=== PATIENT | male | born 1950 | race Caucasian/White ===

== ENCOUNTER → 2016-04-27 | Outpatient (CLI) | payer MEDICARE, OTHER ==
--- NOTE | 2016-04-28 13:54 | MR ---
EXAMINATION TYPE: MR lumbar spine wo con DATE OF EXAM: 04/27/2016 11:41 AM COMPARISON: NONE HISTORY: Low back pain, radiculopathy lumbar CONTRAST: 0 mL intravenous Omniscan. TECHNIQUE: Multiplanar, multisequence images of the lumbar spine were acquired. FINDINGS: L5-S1: Very subtle minimal disc bulge is present with anterior thecal sac contact. No spinal canal st enosis is present. Neural foramen are patent. Mild facet hypertrophy is present. L4-L5: Minimal disc bulging is anterior thecal sac flattening No spinal canal stenosis. No foramina l stenosis. Facets are normal. L3-L4: Disc bulging is anterior thecal sac flattening. No AP spinal canal stenosis is present. Facet hypertrophy is present with posterior lateral thecal sac compression. L2-L3: No significant disc bulge or disc herniation. No spinal canal stenosis. No foraminal stenosi s. Neural foramen are patent.. L1-L2: No significant disc bulge or disc herniation. No spinal canal stenosis. No foraminal stenosi s. Neural foramen are patent.. T12-L1: No significant disc bulge or disc herniation. No spinal canal stenosis. No foraminal stenos is. Neural foramen are patent.. IMPRESSION: 1. Mild disc bulging L3-4, L4-5, L5-S1
== END | disposition home or self-care (01) ==
LOC: RADMRIMAIN 11:04
PROVIDERS: ATTEND Internal Medicine
DX: M51.17 Intervertebral disc disorders with radiculopathy, lumbosacral region (principal)
CPT/HCPCS: 72148

== ENCOUNTER 2020-05-31 10:53 | Emergency (ER) | payer MEDICARE, OTHER ==
[2020-05-31 11:09] VITALS: BP 134/79; PULSE 92; RESP 18; TEMP 98.1
--- NOTE | 2020-05-31 12:02 | ED ---
General Adult HPI - General Chief complaint: ENT Stated complaint: Voice issues Time Seen by Provider: 05/31/20 11:21 Source: patient Mode of arrival: ambulatory Limitations: no limitations - History of Present Illness Initial comments: 70-year-old male patient presents to the emergency department today for evaluation of a hoarse voice. Patient states her last couple of weeks he has been waking up with a hoarse voice. States her last approximately 30 minutes then resolves. Patient denies any sore throat, difficulty swallowing, or fullness in the neck. States that he does have a chronic cough with sputum production. He is chronic smoker and does drink alcohol frequently. Has not seen a primary care physician for the last 4 years. Does have a history of hypothyroid and supposed to be taking Synthroid also hasn't been taking this for 4 years. Denies any swelling to the neck. Denies any unexplained weight loss Denies fever or chills. Denies any sick contacts. Patient denies any recent rash, shortness of breath, chest pain, abdominal pain, nausea, vomiting, diarrhea, constipation, back pain, numbness, tingling, dizziness, weakness, h ematuria, dysuria, urinary urgency, urinary frequency, headache, visual changes, or any other complaints. - Related Data Home Medications Medication Instructions Recorded Confirmed HYDROcodone/APAP 7.5-325MG [[place] 1 each PO Q6HR PRN 10/29/13 10/29/13 7.5] Ibuprofen [Motrin] 800 mg PO Q8HR PRN 10/29/13 10/29/13 Levothyroxine Sodium [Synthroid] 25 mcg PO DAILY 10/29/13 10/29/13 Previous Rx's Medication Instructions Recorded Famotidine [Pepcid] 20 mg PO HS #30 tablet 05/31/20 Loratadine [Claritin] 10 mg PO DAILY #30 tab 05/31/20 Allergies Allergy/AdvReac Type Severity Reaction Status Date / Time No Known Allergies Allergy Verified 05/31/20 11:09 Review of Systems ROS Statement: Those systems with pertinent positive or pertinent negative responses have been documented in the HPI. ROS Other: All systems not noted in ROS Statement are negative. Past Medical History Past Medical History: COPD, Thyroid Disorder Additional Past Medical History / Comment(s): chronic back pain, arthritis, History of Any Multi-Drug Resistant Organisms: None Reported Past Surgical History: Orthopedic Surgery Past Psychological History: No Psychological Hx Reported Smoking Status: Current every day smoker Past Alcohol Use History: Abuse, Daily, Heavy Past Drug Use History: None Reported General Exam Limitations: no limitations General appearance: alert, in no apparent distress, other (Physical well- developed, well-nourished adult male patient in no acute distress. Vital signs upon presentation temperature 98.1F, pulse 92, respirations 18, blood pressure 134/79, pulse ox 95% on room air.) ENT exam: Present: normal exam, normal oropharynx, mucous membranes moist Neck exam: Present: normal inspection. Absent: tenderness, meningismus, lymphadenopathy, thyromegaly Respiratory exam: Present: normal lung sounds bilaterally. Absent: respiratory distress, wheezes, rales, rhonchi, stridor Cardiovascular Exam: Present: regular rate, normal rhythm, normal heart sounds. Absent: systolic murmur, diastolic murmur, rubs, gallop, clicks GI/Abdominal exam: Present: soft, normal bowel sounds. Absent: distended, tenderness, guarding, rebound, rigid Neurological exam: Present: alert, oriented X3, CN II-XII intact Psychiatric exam: Present: normal affect, normal mood Skin exam: Present: warm, dry, intact, normal color. Absent: rash Course Vital Signs 05/31/20 11:07 Temperature 98.1 F Pulse Rate 92 Respiratory 18 Rate Blood Pressure 134/79 O2 Sat by Pulse 95 Oximetry Medical Decision Making - Medical Decision Making 70-year-old male patient presents to the emergency department today for evaluation of worsening voice for the last 2 weeks. Symptoms are upon wakening and last approximately 30 minutes. Physical examination is unremarkable. There is no thyromegaly noted on exam. Oropharynx appears normal. Patient does chronically drink and smoke cigarettes. We did discuss possibility of ALLERGIES or acid reflux as a cause for his symptoms and we will start Claritin and Pepcid. He is also informed of the possibility regarding laryngeal or other pharyngeal tumors and cancer. He is instructed to follow-up with the ENT specialist for further evaluation as soon as possible. Return parameters were discussed in detail. He verbalizes understanding and agrees with this plan. Case discussed with my attending Dr. Cervantes. Disposition Clinical Impression: Hoarseness of voice Disposition: HOME SELF-CARE Condition: Good Instructions (If sedation given, give patient instructions): Gastroesophageal Reflux Disease (ED), Allergies (ED) Additional Instructions: The instructions go through a couple of possible causes for your symptoms. We also discussed possibility of laryngeal abnormality or tumor. He should follow- up with the ENT specialist as soon as possible for further evaluation. Take medications as directed. Return to the emergency department for any new, worsening, or concerning symptoms. Prescriptions: Loratadine [Claritin] 10 mg PO DAILY #30 tab Famotidine [Pepcid] 20 mg PO HS #30 tablet Is patient prescribed a controlled substance at d/c from ED?: No Referrals: Itz Camara MD [STAFF PHYSICIAN] - 1-2 days Time of Disposition: 12:02
== END 2020-05-31 12:16 | disposition home or self-care (01) ==
LOC: EC 10:53
DX: R49.0 Dysphonia (principal); E03.9 Hypothyroidism, unspecified; F17.200 Nicotine dependence, unspecified, uncomplicated; J44.9 Chronic obstructive pulmonary disease, unspecified; Z79.1 Long term (current) use of non-steroidal anti-inflammatories (NSAID)
CPT/HCPCS: 99283

== ENCOUNTER 2020-09-01 10:42 | Day surgery (SDC) | payer MEDICARE, OTHER ==
[2020-08-31 09:05] VITALS: BMI 25.8
--- NOTE | 2020-09-01 06:09 | HP ---
HISTORY AND PHYSICAL CHIEF COMPLAINT: Chronic laryngitis and perforation of the right tympanic membrane. HISTORY OF PRESENT ILLNESS: The patient is a 70-year-old male who recently presented to my office complaining of having a 3 month history of hoarseness. Patient smokes approximately 1/2 to 1 pack of cigarettes per day. He was advised to quit for obvious health reasons. In addition to this, the patient states that he drinks almost 24 cans of beer on a daily basis. I advised him that that is an extreme amount of alcohol to be consuming in a 24 hour period and that he should definitely reduce that amount. He states that he has always drank this much. He denied any referred otalgia. He denies any difficulty swallowing, but he states that he constantly clears his throat. At the time that he was seen in the office clinical examination of the ears revealed the patient had a perforation of the right tympanic membrane centrally. The middle ear space is free of any fluid or infection. Examination of oropharynx including indirect laryngoscopy using the headlight and mirror revealed no suspicious lesion of the right or left piriform sinus, base of tongue or epiglottis. The patient's vocal cords were difficult to visualize because of an overhanging epiglottis, but it was highly suspicious for a possible lesion on one or both true vocal cords. It was recommend the patient undergo a suspension microlaryngoscopy with biopsy of lesion of the vocal cords and possible laser and also insertion of a Kartush patch to the right tympanic membrane. PAST MEDICAL HISTORY: Past medical history reveals patient has no known allergies to medications. There is no history of asthma, diabetes mellitus or hypertension. MEDICATIONS: He is not currently on any medications. SOCIAL HISTORY: He smokes 1/2 to 1 pack of cigarettes per day and takes in almost 24 cans of beer on a daily basis. REVIEW OF SYSTEMS: The review of systems is essentially noncontributory. PHYSICAL EXAMINATION: This patient is a 70-year-old male who was alert and cooperative. HEENT examination patient is normocephalic. Examination of the left ear is unremarkable. Examination of the right ear reveals he has a central perforation encompassing approximately 10% of the right tympanic membrane. The middle ear space is free of any fluid, infection or cholesteatoma. The ossicles are intact. Pupils are equal, round, react to light and accommodation. Extraocular movements within normal limits. Intranasal examination reveals moderate to severe septal deviation with compensatory hypertrophy of the inferior turbinates and a moderate amount of mucous on the mucous membrane draining down the posterior pharynx. Examination of oropharynx unremarkable. Examination of larynx is as described above in the history of the present illness and will not be repeated here. Cranial nerves 2 through 12 and the remainder of the head and neck exam are all within normal limits. Chest cardiovascular: Both lung howard are clear to percussion and auscultation. The patient is in regular sinus rhythm S1, S2 are present. No murmurs, S3s or S4. Abdomen: There is no evidence of any masses, megaly or tenderness. The abdomen is soft. Skin is unremarkable. Musculoskeletal and neurological are unremarkable. Rectal exam. Rectal exam is deferred at this time because the patient has this done on a regular basis at his family physician's office. The remainder of physical exam is essentially unremarkable. PREVIOUS SURGERIES: Include tonsillectomy, adenoidectomy, right arthroscopic knee surgery, left shoulder surgery, bilateral cataract surgery. IMPRESSION: Chronic laryngitis, possible laryngeal lesion, malignancy? Perforation of the right tympanic membrane. PLAN: The patient is scheduled undergo a suspension microlaryngoscopy with biopsy and possible CO2 laser of lesion of the larynx under general anesthesia in the a.m. In addition, he is also going to undergo insertion of a Kartush patch to a perforation in the right tympanic membrane. Attention RNs in the pre-surgical area, I have ordered for this patient to receive 2 grams of Ancef intravenously as a pre-surgical prophylactic antibiotic. If the pharmacy department sends a different pre-surgical prophylactic antibiotic regimen to the pre-surgical area for this patient, please cancel that order and send the medication back to the pharmacy and make sure that the patient's account is credited appropriately. In addition, I am not ordering any Ofirmev medication for this patient because of his high alcohol consumption and concern about his liver. I have discussed the risks, benefits and alternative therapies for the above-mentioned procedure and for both sedation/analgesia as well as necessary blood product administration, if indicated, as they pertain to this patient. The patient has indicated his or her understanding and acceptance of the risks and procedures discussed. MMODL / IJN: [id number] /
[~2020-09-01 10:42] MED LIST: DEXAMETHASONE SOD PHOSPHATE 4 MG/ML 1 ML VIAL IV ONE; HYDROmorphone 0.5 MG/0.5 ML SYRINGE IVP PRN; LACTATED RINGERS 1,000 ML IV SCH; MIDAZOLAM 2 MG/2 ML VIAL IV PRN; ONDANSETRON 4 MG/2 ML VIAL IVP ONE; Pre Op ABX Message 1 EACH MISC MISCELLANE ONE
[2020-09-01] MEDS ORDERED: ONDANSETRON 4 MG/2 ML VIAL IVP ONE (11:18)
[2020-09-01] MEDS ORDERED: DEXAMETHASONE SOD PHOSPHATE 4 MG/ML 1 ML VIAL IVP ONE (11:19)
[2020-09-01] MEDS ORDERED: ACETAMINOPHEN IV (For NPO) 1,000 MG in EMPTY BAG 1 BAG IVPB ONE (12:15)
[2020-09-01] MEDS ORDERED: MIDAZOLAM 2 MG/2 ML VIAL ONE (12:27)
[2020-09-01] MEDS ORDERED: GLYCOPYRROLATE 0.2 MG/ML 2 ML VIAL ONE (12:27)
[2020-09-01] MEDS ORDERED: DEXAMETHASONE SOD PHOSPHATE 10 MG/ML 1 ML VIAL ONE (12:27)
[2020-09-01] MEDS ORDERED: NEOSTIGMINE 1 MG/ML 10 ML VIAL ONE (12:27)
[2020-09-01] MEDS ORDERED: LIDOCAINE 1% INJ 10MG/ML (20 ML MDV) ONE (12:27)
[2020-09-01] MEDS ORDERED: SUCCINYLCHOLINE CHLORIDE 100 MG/5 ML SYR IV ONE (12:27)
[2020-09-01] MEDS ORDERED: NALOXONE 0.4 MG/ML 1 ML VIAL ONE (12:27)
[2020-09-01] MEDS ORDERED: fentaNYL (PF) 50 MCG/ML 2 ML AMP ONE (12:27)
[2020-09-01] MEDS ORDERED: ROCURONIUM 10 MG/ML (5 ML VIAL) IV ONE (12:27)
[2020-09-01] MEDS ORDERED: PROPOFOL 10 MG/ML 20 ML VIAL IV ONE (12:27)
[2020-09-01] MEDS ORDERED: OFLOXACIN 0.3% OPHTH DROPS 5 ML BOTTLE RIGHT EAR ONE (12:51)
[2020-09-01 13:57] VITALS: RESP 16; TEMP 97.7
[2020-09-01] MEDS ORDERED: LABETALOL 5 MG/ML VIAL MDV IVP ONE (14:25)
[2020-09-01 15:10] VITALS: PULSE 80
[2020-09-01 15:11] VITALS: BP 175/81
--- NOTE | 2020-09-02 19:03 | OP ---
OPERATIVE REPORT DATE OF SURGERY: 09/01/2020. PREOPERATIVE DIAGNOSES: 1. Chronic laryngitis with laryngeal lesion. 2. Perforation of the right tympanic membrane. POSTOPERATIVE DIAGNOSES: 1. 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 2. Perforation of the right tympanic membrane. ANESTHESIA: General. OPERATIVE PROCEDURE: Suspension microlaryngoscopy, laser of a benign lesion of the left true vocal cord. The perforation of the right tympanic membrane was closed using a 7 mm Kartush patch. OPERATING SURGEON: Dr. Camara. COMPLICATIONS: None. OPERATIVE PROCEDURE: The patient is placed on the operating table in supine position and after uneventful induction and endotracheal intubation, satisfactory general anesthesia was obtained. Next, the patient's right ear was draped in the usual and customary fashion, and following this, using the Zeiss operating microscope and a #3 aural speculum, the right external auditory canal was cleansed of all wax and debris. Inspection revealed a central perforation encompassing approximately 15-20% of the right tympanic membrane. The middle ear ossicles appeared to be intact and the middle ear space was free of infection or cholesteatoma. Therefore, it was elected to insert a 7 mm Kartush patch to the perforation in the right tympanic membrane. Next, attention was directed towards suspension microlaryngoscopy portion of this procedure. Next, the patient's head was draped in usual and customary fashion and following this the laryngoscope was introduced into the patient's oropharynx and the entire oropharynx including the right and left piriform sinus, base of tongue, valleculae and epiglottis were inspected and found to be free of any suspicious lesions. Next, the tip of the laryngoscope was presented to the laryngeal introitus. Next, the Lewy apparatus was attached to the handle of the laryngoscope and the laryngoscope was suspended on the patient's chest. Using the Zeiss operating microscope and under magnification it was noted that the patient's larynx almost appeared to be somewhat rotated but further examination revealed that the patient had what appeared to be a completely paralyzed left true vocal cord which was located in the paramedian/median position. The right true vocal cord appeared to be normal. There was also a polypoid lesion located along the edge of the left true vocal cord. Using the laser wand on the appropriate setting, this polypoid lesion which appeared to be completely benign, was vaporized in the usual and customary fashion. Further inspection did not reveal any suspicious lesions. The patient's hypopharynx had the usual changes seen in patients who are heavy smokers, but no suspicious masses or abnormalities to suggest carcinoma were noted. The patient was given 10 mg of Decadron intraoperatively to reduce any postsurgical laryngeal edema. At this point the procedure was terminated. There were no intraoperative complications. The patient tolerated the procedure well and was returned to recovery room in satisfactory condition. MMODL / IJN: [id number] / MTDD
== END 2020-09-01 15:12 | disposition home or self-care (01) ==
LOC: OR 10:42
PROVIDERS: ATTEND Otolaryngology
DX: H72.91 Unspecified perforation of tympanic membrane, right ear (principal); J37.0 Chronic laryngitis; J38.1 Polyp of vocal cord and larynx; F17.210 Nicotine dependence, cigarettes, uncomplicated; J44.9 Chronic obstructive pulmonary disease, unspecified; E07.9 Disorder of thyroid, unspecified
CPT/HCPCS: 31541; 69610; J2250; J1100 ×2; J2310; J2710; J0690; J2405; J2001; J3010; J0330; J2704

== ENCOUNTER → 2020-09-15 | Outpatient (CLI) | payer MEDICARE, OTHER ==
[2020-09-15 16:05] LABS: African American GFR (CKD) >90 (>60 ml/min/1.73 sqM); Blood Urea Nitrogen 12 mg/dL (9-20); Non-African American GFR(CKD) >90 (>60 ml/min/1.73 sqM)
--- NOTE | 2020-09-15 16:32 | CT ---
EXAMINATION TYPE: CT chest wo/w con DATE OF EXAM: 09/15/2020 COMPARISON: None HISTORY: chest mass CT DLP: 616.20 mGycm Automated exposure control for dose reduction was used. CONTRAST: CT scan of the chest is performed with IV Contrast, patient injected with 100 mL of Isovue 300. FINDINGS: LUNGS: Spiculated mass right apical measures 3 cm x 2 cm. There is internal cavitation. Right apical pleural thickening is noted. Groundglass nodule left lower lobe measures 7 mm. MEDIASTINUM: There are no greater than 1 cm hilar or mediastinal lymph nodes. No pericardial effusi on is seen. Thoracic aorta is of normal caliber. The heart is not enlarged. UPPER ABDOMEN: No significant abnormality appreciated. OTHER: No additional significant abnormality is seen. IMPRESSION: Spiculated mass right apical measures 3 cm x 2 cm. There is internal cavitation. Right apical pleural thickening is noted. Findings felt to reflect malignancy until proven otherwise.
== END | disposition home or self-care (01) ==
LOC: RADCTMAIN 15:00
PROVIDERS: ATTEND Otolaryngology
DX: R91.8 Other nonspecific abnormal finding of lung field (principal); J38.1 Polyp of vocal cord and larynx
CPT/HCPCS: 82565; 84520; 71270; 36415; Q9967

== ENCOUNTER → 2020-10-13 | Outpatient (CLI) | payer MEDICARE, OTHER ==
--- NOTE | 2020-10-16 06:36 | PE ---
EXAMINATION TYPE: PET CT fusion skull to thigh DATE OF EXAM: 10/13/2020 COMPARISON: Chest CT September 15, 2020 HISTORY: Right-sided lung mass. Abnormal CT. TECHNIQUE: Following the intravenous administration of 9.71 mCi of F-18 FDG, whole body images are p erformed from the skull base to the midthigh. Images are reviewed on the computer in the coronal, ax ial, and sagittal planes. Reconstructed rotating images are created on independent workstation and r eviewed on the computer. A localization and attenuation correction CT is performed in conjunction w ith the PET scan. Blood glucose level equals 101 SCAN: Initial Scan FINDINGS: SKULL BASE AND NECK: Abnormal predominantly right hypopharyngeal mass occupying right aspect of piri form sinus at level of inferior hyoid bone and vocal cord measuring approximately 3.9 x 3.2 cm axial image 58, max SUV is 10.87. Abnormal hypermetabolic right neck lymph node superior to this superior to hyoid bone anterior to the carotid and jugular vessels measuring 1.1 x 1.0 cm axial image 49, max SUV is 4.2. CHEST, MEDIASTINUM, AND HILAR REGION: Redemonstration of abnormal right apical irregular thick-walled cavitary hypermetabolic nodule measuring 2.6 x 2.4 cm axial image 73, max SUV is 10.61s. No additional areas of abnormal hypermetabolic uptake. ABDOMEN AND PELVIS: No areas of abnormal hypermetabolic uptake. OSSEOUS STRUCTURES: No areas of abnormal hypermetabolic uptake OTHER CT: Near complete opacification left maxillary sinus. Moderate mucosal thickening inferior righ t maxillary sinus. Mild to moderate calcified plaque bilateral carotid bulb level. Calcification at level of mitral valve. At least moderate coronary artery calcification. Diffuse fatty infiltration of liver. Moderate to severe calcified plaque of the abdominal aorta extends into branch vessels. Slight scolio tic curvature with multilevel spurring in the spine. Old healed fractures of the anterior and lateral left upper and mid ribs. 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 Advise ENT referral and sampling.
== END | disposition home or self-care (01) ==
LOC: RADPETMAIN 15:14
PROVIDERS: ATTEND Thoracic Surgery (Cardiothoracic Vascular Surgery)
DX: R91.1 Solitary pulmonary nodule (principal)
CPT/HCPCS: 78815; A9552

== ENCOUNTER → 2021-01-10 | Outpatient (CLI) | payer MEDICARE, OTHER ==
[2021-01-10 10:58] LABS: African American GFR (CKD) >90 (>60 ml/min/1.73 sqM); Blood Urea Nitrogen 9 mg/dL (9-20); Non-African American GFR(CKD) >90 (>60 ml/min/1.73 sqM)
--- NOTE | 2021-01-10 12:48 | CT ---
EXAMINATION TYPE: CT neck chest w con DATE OF EXAM: 01/10/2021 COMPARISON: None HISTORY: malignant neoplasm of subglottis CT DLP: 1033 mGycm CONTRAST: CT scan of the neck is performed with IV Contrast, patient injected with 100 mL of Isovue 300. Contrast enhanced CT of the neck was performed from the skull base through the lung apices. AIRWAY: The right subglottic region there is a large mass measuring 4.2 x 3.4 x 3.1 cm felt to reflec t malignancy until proven otherwise. There is a narrowing of the airway at its narrowest point measur ing 4.5 mm. Soft tissue extends posterior to the cricoid cartilage on the right. SALIVARY GLANDS: The submandibular and parotid glands are free of mass or inflammatory process. THYROID GLAND: No nodules or masses seen. LYMPH NODES: Right submandibular adenopathy measuring 2.9 x 3.2 x 2.0 cm. Low right paratracheal mellisa opathy measuring 2.0 cm. LUNG APICES: Enlarging partially imaged spiculated mass right upper lobe has been commented on previo usly. OTHER: Vascular structures are patent. No significant degenerative change of the cervical spine. N o abscess seen. IMPRESSION: 1. Malignancy of the right-sided hypopharynx as discussed above with adenopathy about the neck. 2. Enlarging partially imaged spiculated mass right upper lobe.
== END | disposition home or self-care (01) ==
LOC: RADCTMAIN 09:36
PROVIDERS: ATTEND Otolaryngology
DX: C32.2 Malignant neoplasm of subglottis (principal); C34.11 Malignant neoplasm of upper lobe, right bronchus or lung
CPT/HCPCS: 82565; 84520; 70491; 71260; 36415; Q9967

== ENCOUNTER 2021-02-09 23:35 | Emergency (ER) | payer MEDICARE, OTHER ==
[2021-02-09 23:50] VITALS: TEMP 97.5
[2021-02-09] MEDS ORDERED: SODIUM CHLORIDE 0.9% 1,000 ML IV STA (23:55)
[2021-02-09] MEDS ORDERED: ONDANSETRON 4 MG/2 ML VIAL IVP STA (23:55)
[2021-02-09] MEDS ORDERED: LORazepam 2 MG/ML INJ IV STA (23:56)
--- NOTE | 2021-02-09 23:56 | ED ---
GI Bleed HPI - General Chief complaint: GI Bleed Stated complaint: Vomiting blood, Cancer PT Time Seen by Provider: 02/09/21 23:53 Source: patient, family, RN notes reviewed, old records reviewed, Caregiver Mode of arrival: ambulatory Limitations: no limitations - History of Present Illness Initial comments: This is a 70-year-old male to the emergency department for evaluation patient presents today for evaluation of persistent vomiting vomiting blood bright red blood. 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 Patient also has history of lung cancer. Feels mildly weak but is does not feel like he is going to have a syncope event. No blood thinners. Patient received no current treatment with recent diagnosis does not want to pursue any support measures MD complaint: blood streaked emesis, gross hematemesis -: hour(s) Radiation: none Quality: painless, burning Improves with: none Worsens with: none Context: history of GI bleed, other (History of oral cancer) Associated Symptoms: nausea, vomiting Treatments Prior to Arrival: none - Related Data Home Medications Medication Instructions Recorded Confirmed Ibuprofen 800 mg PO Q8H PRN 08/31/20 09/01/20 Allergies Allergy/AdvReac Type Severity Reaction Status Date / Time No Known Allergies Allergy Verified 02/09/21 23:45 Review of Systems ROS Statement: Those systems with pertinent positive or pertinent negative responses have been documented in the HPI. ROS Other: All systems not noted in ROS Statement are negative. Past Medical History Past Medical History: COPD, Hearing Disorder / Deafness, Osteoarthritis (OA), Thyroid Disorder Additional Past Medical History / Comment(s): chronic back pain, arthritis, PAST THYROID PROBLEMS -NOT TAKING MEDS AT THIS TIME, [facility] History of Any Multi-Drug Resistant Organisms: None Reported Past Surgical History: Orthopedic Surgery Additional Past Surgical History / Comment(s): RIGHT SHOULDER SURGERY, LEFT SURGERY, BILATERAL CATARACT SURGERY Past Anesthesia/Blood Transfusion Reactions: No Reported Reaction Past Psychological History: No Psychological Hx Reported Smoking Status: Current every day smoker Past Alcohol Use History: Daily, Heavy Past Drug Use History: None Reported - Past Family History Mother Family Medical History: No Reported History Sister(s) Family Medical History: Cancer Additional Family Medical History / Comment(s): LUNG CANCER General Exam General appearance: alert, in no apparent distress, anxious Head exam: Present: atraumatic, normocephalic, normal inspection Eye exam: Present: normal appearance, PERRL, EOMI. Absent: scleral icterus, conjunctival injection, periorbital swelling ENT exam: Present: normal exam, mucous membranes moist Neck exam: Present: normal inspection. Absent: tenderness, meningismus, lymphadenopathy Respiratory exam: Present: normal lung sounds bilaterally. Absent: respiratory distress, wheezes, rales, rhonchi, stridor Cardiovascular Exam: Present: regular rate, normal rhythm, tachycardia, normal heart sounds. Absent: systolic murmur, diastolic murmur, rubs, gallop, clicks GI/Abdominal exam: Present: soft, normal bowel sounds. Absent: distended, tenderness, guarding, rebound, rigid Extremities exam: Present: normal inspection, full ROM, normal capillary refill. Absent: tenderness, pedal edema, joint swelling, calf tenderness Back exam: Present: normal inspection Neurological exam: Present: alert, oriented X3, CN II-XII intact Psychiatric exam: Present: normal affect, normal mood Skin exam: Present: warm, dry, intact, normal color. Absent: rash Course Vital Signs 02/09/21 02/10/21 02/10/21 23:45 00:21 00:30 Temperature 97.5 F L Pulse Rate 125 H 104 H 125 H Respiratory 24 22 20 Rate Blood Pressure 112/71 123/71 114/81 O2 Sat by Pulse 91 L 95 91 L Oximetry 02/10/21 00:52 Temperature Pulse Rate 45 L Respiratory 45 H Rate Blood Pressure 175/89 O2 Sat by Pulse 66 L Oximetry - Reevaluation(s) Reevaluation #1: 02/10/21 00:11 Medical record is reviewed Reevaluation #2: 02/10/21 01:05 Patient began to get significantly 6 week shaky, spoke with family who reinforced his wishes that he did not want any further life support Family at bedside as this patient begins active process of dying Reevaluation #3: 02/10/21 01:06 Patient reevaluated at 0102, breathing has ceased, his pupils are fixed and dil ated, he has no heart sounds are breath sounds Reevaluation #4: 02/10/21 01:07 Family at bedside during patient's passing Reevaluation #5: 02/10/21 01:34 Entire family has come to see patient, debridement - Consultations Consultation #1: Attempt made to talk to Dr. Najera unsuccessful will try again in the morning Medical Decision Making - Medical Decision Making 70 male here with active bleeding significant oral cancer lung cancer significant bleeding, patient did pass away and was a DO NOT RESUSCITATE patient at 0102 - Lab Data Result diagrams: 02/10/21 00:05 Lab Results 02/10/21 02/10/21 02/10/21 Range/Units 00:05 00:05 00:05 WBC 10.2 (3.8-10.6) k/uL RBC 4.56 (4.30-5.90) m/uL Hgb 15.3 (13.0-17.5) gm/dL Hct 44.6 (39.0-53.0) % MCV 97.9 (80.0-100.0) fL MCH 33.5 (25.0-35.0) pg MCHC 34.2 (31.0-37.0) g/dL RDW 13.5 (11.5-15.5) % Plt Count 175 (150-450) k/uL MPV 8.1 Neutrophils % 71 % Lymphocytes % 17 % Monocytes % 8 % Eosinophils % 2 % Basophils % 1 % Neutrophils # 7.2 (1.3-7.7) k/uL Lymphocytes # 1.8 (1.0-4.8) k/uL Monocytes # 0.8 (0-1.0) k/uL Eosinophils # 0.2 (0-0.7) k/uL Basophils # 0.1 (0-0.2) k/uL PT 12.7 H (9.0-12.0) sec INR 1.2 H (<1.2) APTT 25.6 (22.0-30.0) sec POC Glucose (mg/dL) (75-99) mg/dL POC Glu [employer] ID Troponin I <0.012 (0.000-0.034) ng/mL Blood Type Recheck Bld Type Recheck Status Spec Expiration Date 02/10/21 02/10/21 Range/Units 00:06 00:50 WBC (3.8-10.6) k/uL RBC (4.30-5.90) m/uL Hgb (13.0-17.5) gm/dL Hct (39.0-53.0) % MCV (80.0-100.0) fL MCH (25.0-35.0) pg MCHC (31.0-37.0) g/dL RDW (11.5-15.5) % Plt Count (150-450) k/uL MPV Neutrophils % % Lymphocytes % % Monocytes % % Eosinophils % % Basophils % % Neutrophils # (1.3-7.7) k/uL Lymphocytes # (1.0-4.8) k/uL Monocytes # (0-1.0) k/uL Eosinophils # (0-0.7) k/uL Basophils # (0-0.2) k/uL PT (9.0-12.0) sec INR (<1.2) APTT (22.0-30.0) sec POC Glucose (mg/dL) 546 H (75-99) mg/dL POC Glu [employer] ID Alfredo Martinez Troponin I (0.000-0.034) ng/mL Blood Type Recheck No Previous Record Bld Type Recheck Status CABO Indicated Spec Expiration Date 02/13/20212305 - Radiology Data Radiology results: report reviewed (Chest x-ray does show consolidation infiltrate and effusion), image reviewed Disposition Clinical Impression: Upper gastrointestinal hemorrhage, Hypoxia, Cardiopulmonary arrest Disposition: Condition: Critical Is patient prescribed a controlled substance at d/c from ED?: No Referrals: Lv Robin MD [Primary Care Provider] - 1-2 days Preliminary Cause of : Respiratory Failure/Hypoxia
[2021-02-10] MEDS ORDERED: TRANEXAMIC ACID 1,000 MG in SODIUM CHLORIDE 0.9% 100 ML IVPB ONE (00:15)
[2021-02-10] MEDS ORDERED: OCTREOTIDE 100 MCG/ML INJ IVP ONE (00:15)
--- NOTE | 2021-02-10 00:37 | XR ---
EXAMINATION TYPE: XR chest 1V portable DATE OF EXAM: 02/10/2021 COMPARISON: 10/11/2015 HISTORY: Throat cancer. Right lung mass. TECHNIQUE: Single view FINDINGS: There is airspace consolidation and fluid at the left lung base. There is coarse interstiti al infiltrate in both lungs. There is no obvious heart failure. There is pleural thickening at the ri ght lung apex with also some pulmonary infiltrate. Heart size is fairly normal. IMPRESSION: Extensive bilateral pulmonary interstitial infiltrates. There is some consolidation left lower lobe with left pleural effusion. Pulmonary abnormalities essentially new compared to old exam. No heart failure.
[2021-02-10] MEDS ORDERED: DEXTROSE 50% SYRINGE 50 ML IVP STA (00:43)
[2021-02-10 00:44] LABS: INR 1.2 (<1.2); Partial Thromboplastin Time 25.6 sec (22.0-30.0); Prothrombin Time 12.7 sec (9.0-12.0)
[2021-02-10 00:49] LABS: Basophils # (A) 0.1 k/uL (0-0.2); Basophils % (A) 1 %; Eosinophils # (A) 0.2 k/uL (0-0.7); Eosinophils % (A) 2 %; HCT 44.6 % (39.0-53.0); HGB 15.3 gm/dL (13.0-17.5); Lymphocytes # (A) 1.8 k/uL (1.0-4.8); Lymphocytes % (A) 17 %; MCH 33.5 pg (25.0-35.0); MCHC 34.2 g/dL (31.0-37.0); MCV 97.9 fL (80.0-100.0); Mean Platelet Volume 8.1; Monocytes # (A) 0.8 k/uL (0-1.0); Monocytes % (A) 8 %; Neutrophils # (A) 7.2 k/uL (1.3-7.7); Neutrophils % (A) 71 %; Platelet Count 175 k/uL (150-450); RBC 4.56 m/uL (4.30-5.90); RDW 13.5 % (11.5-15.5); WBC 10.2 k/uL (3.8-10.6)
[2021-02-10 01:02] LABS: Glucose,Whole Blood 546 mg/dL (75-99)
[2021-02-10 01:18] LABS: AST 71 U/L (17-59); African American GFR (CKD) >90 (>60 ml/min/1.73 sqM); Albumin 3.8 g/dL (3.5-5.0); Alkaline Phosphatase 90 U/L (38-126); Anion Gap 7 mmol/L; Blood Urea Nitrogen 11 mg/dL (9-20); Calcium 9.4 mg/dL (8.4-10.2); Carbon Dioxide 34 mmol/L (22-30); Chloride 82 mmol/L (98-107); Glucose 128 mg/dL (74-99); Magnesium 1.7 mg/dL (1.6-2.3); Non-African American GFR(CKD) >90 (>60 ml/min/1.73 sqM); Sodium 123 mmol/L (137-145); Total Bilirubin 1.4 mg/dL (0.2-1.3)
[2021-02-10 01:20] LABS: ALT 25 U/L (4-49)
[2021-02-10 01:22] VITALS: BP 175/89
[2021-02-10 01:48] LABS: Alcohol <10 mg/dL; Lipase 55 U/L (23-300)
[2021-02-10 04:19] VITALS: PULSE 0; RESP 0
== END 2021-02-10 05:01 | disposition expired ==
LOC: EC 23:35
DX: I46.9 Cardiac arrest, cause unspecified (principal); K92.2 Gastrointestinal hemorrhage, unspecified; R09.02 Hypoxemia; J44.9 Chronic obstructive pulmonary disease, unspecified; H91.90 Unspecified hearing loss, unspecified ear; F17.200 Nicotine dependence, unspecified, uncomplicated
CPT/HCPCS: 36415; 86900; 86901; 80053; 83690; 83735; 84484; 85025; 85610; 85730; 86850; 71045; 99285; 96365; 96375; G0480; J2060; J2405; J2354; 80320